=== PATIENT | female | born 1990 | race Caucasian/White ===

== ENCOUNTER → 2018-04-20 | Outpatient (CLI) | payer OTHER ==
--- NOTE | 2018-04-21 07:22 | US ---
EXAMINATION TYPE: US pelvic complete DATE OF EXAM: 04/20/2018 COMPARISON: NONE CLINICAL HISTORY: R10.2 Pelvic Pain. right sided pelvic pain after intercourse TECHNIQUE: TA. Transabdominal sonographic images of the pelvis were acquired. Date of LMP: 2 years ago, on low estrogen control EXAM MEASUREMENTS: Uterus: 5.7 x 3.9 x 3.1 cm Endometrial Stripe: 0.6 cm Right Ovary: 3.1 x 1.8 x 1.3 cm Left Ovary: 3.7 x 2.7 x 2.1 cm 1. Uterus: Anteverted wnl 2. Endometrium: wnl 3. Right Ovary: wnl 4. Left Ovary: multiple cystic areas versus follicles noted on the left, largest = 2.6cm 5. Bilateral Adnexa: wnl 6. Posterior cul-de-sac: wnl IMPRESSION: 1. Multiple small left ovarian cysts. These may be functional in nature and can be confirmed with fol low-up study in 6 weeks.
== END | disposition home or self-care (01) ==
LOC: RADUSWWP 16:01
PROVIDERS: ATTEND Obstetrics & Gynecology
DX: N83.202 Unspecified ovarian cyst, left side (principal)
CPT/HCPCS: 76856

== ENCOUNTER → 2018-09-07 | Outpatient (CLI) | payer OTHER ==
--- NOTE | 2018-09-07 14:38 | US ---
EXAMINATION TYPE: US pelvic complete DATE OF EXAM: 09/07/2018 COMPARISON: US 2019 CLINICAL HISTORY: R10.2 Pelvic and perineal pain. Intermittent right pelvic pain, history ovarian cys ts, patient on control TECHNIQUE: . Transabdominal sonographic images of the pelvis were acquired. Date of LMP: 2015 EXAM MEASUREMENTS: Uterus: 7.2 x 2.9 x 3.2 cm Endometrial Stripe: 0.3 cm Right Ovary: 3.4 x 1.7 x 2.2 cm Left Ovary: 3.2 x 1.4 x 2.0 cm 1. Uterus: anteverted 2. Endometrium: wnl 3. Right Ovary: wnl 4. Left Ovary: wnl 5. Bilateral Adnexa: wnl 6. Posterior cul-de-sac: wnl IMPRESSION: No acute process.
== END | disposition home or self-care (01) ==
LOC: RADUSWWP 14:04
DX: R10.2 Pelvic and perineal pain (principal)
CPT/HCPCS: 76856

== ENCOUNTER 2019-10-27 08:50 | Day surgery (SDC) | payer OTHER ==
[2019-10-26 08:33] VITALS: BMI 25.0
[~2019-10-27 08:50] MED LIST: LACTATED RINGERS 1,000 ML IV SCH
[2019-10-27] MEDS ORDERED: LIDOCAINE 1% (10MG/ML) FOR IV START INTRADERMA ONE (09:31)
[2019-10-27] MEDS ORDERED: PROPOFOL 10 MG/ML 20 ML VIAL IV ONE (10:05)
[2019-10-27] MEDS ORDERED: LIDOCAINE 1% INJ 10MG/ML (20 ML MDV) ONE (10:05)
--- NOTE | 2019-10-27 10:23 | P.PCN ---
Date of Procedure: 10/27/19 Description of Procedure: BRIEF HISTORY: Patient is a 29-year-old female with a medical history significant for peptic ulcer disease presenting for EGD for evaluation of peptic ulcer disease. Patient reports epigastric pain and a history of peptic ulcer disease diagnosed 8 years ago at which time she was told she had 6 ulcers. Patient started on Protonix twice daily with some improvement in symptoms. Denies any NSAID use.. PROCEDURE PERFORMED: Esophagogastroduodenoscopy with biopsy. PREOPERATIVE DIAGNOSIS: Peptic ulcer disease, epigastric pain, history of peptic ulcer disease. ESTIMATED BLOOD LOSS: Minimal. IV sedation per anesthesia. PROCEDURE: After informed consent was obtained, the patient was brought into the endoscopy unit. IV sedation was administered by Anesthesia under continuous monitoring. Initially the Olympus GIF-190 video endoscope was inserted into the mouth. Esophagus intubated without any difficulty. It was gradually advanced into the stomach and duodenum and carefully examined. The bulb and the second part of the duodenum appeared normal, with biopsies taken. The scope at this time was withdrawn to the stomach, adequately insufflated with air, and upon careful examination, mucosa of the antrum, body, cardia and the fundus appeared normal, except for some mild scattered erythema in the antrum and body suggestive of mild gastritis with biopsies taken. The scope was then withdrawn into the esophagus. The GE junction was located at 37 cm from the incisors and biopsied. The esophagus appeared normal. There were no erosions or ulcerations seen and the patient tolerated the procedure well. IMPRESSION: 1. Mild gastritis, antrum and body biopsied. 2. Biopsies of the duodenum and GE junction. RECOMMENDATIONS: The findings of this examination were discussed with the patient and her grandmother. Okay to resume diet. Okay to resume medications. Await pathology from biopsies. Continue Protonix therapy for now, can titrate off of the medication as tolerated.
[2019-10-27 10:35] VITALS: BP 116/74; PULSE 56; RESP 14
== END 2019-10-27 10:54 | disposition home or self-care (01) ==
LOC: ORWHC2ENDO 08:50
PROVIDERS: ATTEND Internal Medicine
DX: K21.0 Gastro-esophageal reflux disease with esophagitis (principal); K29.50 Unspecified chronic gastritis without bleeding; K27.9 Peptic ulcer, site unspecified, unspecified as acute or chronic, without hemorrhage or perforation; Z87.11 Personal history of peptic ulcer disease; Z88.2 Allergy status to sulfonamides; G43.909 Migraine, unspecified, not intractable, without status migrainosus
CPT/HCPCS: 81025; 88305; 43239; J2001; J2704